=== PATIENT | male | born 1970 | race African-American/Black ===

== ENCOUNTER 2017-09-12 01:11 | Emergency (ER) | payer SELFPAY ==
[2017-09-12] MEDS ORDERED: Ibuprofen 800 MG TAB ONE (01:51)
--- NOTE | 2017-09-12 09:10 | RAD ---
LEFT WRIST 3 VIEWS: Date: 09/12/17 PROVIDED CLINICAL HISTORY: Fall. FINDINGS: There is no evidence for fracture or other acute osseous abnormality. If there is persistent clinical concern, conservative management and follow-up imaging are advised. IMPRESSION: As above. POS: [facility]
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
== END 2017-09-12 01:56 | disposition home or self-care (01) ==
LOC: SCSER 01:11
DX: S63.502A Unspecified sprain of left wrist, initial encounter (principal); S63.501A Unspecified sprain of right wrist, initial encounter; F17.210 Nicotine dependence, cigarettes, uncomplicated; V80.010A Animal-rider injured by fall from or being thrown from horse in noncollision accident, initial encounter

== ENCOUNTER 2019-05-25 10:03 | Emergency (ER) | payer SELFPAY ==
[2019-05-25] MEDS ORDERED: Adacel (T-DAP) 0.5 ML SYRINGE ONE (11:04)
[2019-05-25] MEDS ORDERED: Ibuprofen 800 MG TAB ONE (11:05)
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
== END 2019-05-25 11:52 | disposition home or self-care (01) ==
LOC: ERS 10:03
DX: S43.402A Unspecified sprain of left shoulder joint, initial encounter (principal); S60.419A Abrasion of unspecified finger, initial encounter; I10 Essential (primary) hypertension; V67.5XXA Driver of heavy transport vehicle injured in collision with fixed or stationary object in traffic accident, initial encounter
CPT/HCPCS: 90471; 90715; 93005

== ENCOUNTER 2019-11-28 08:47 | Emergency (ER) | payer SELFPAY ==
[2019-11-28 09:24] LABS: #Basophils 0.1 thou/uL (0.0-0.2); #Eosinphils 0.3 thou/uL (0.0-0.7); #Lymphocytes 2.6 thou/uL (1.20-3.40); #Monocytes 0.6 thou/uL (0.11-0.59); #Neutrophils 3.6 thou/uL (1.40-6.50); %Basophils 1.5 % (0.0-1.0); %Eosinophils 3.6 % (0.0-10.0); %Lymphocytes 36.6 % (21.0-51.0); %Monocytes 7.7 % (0.0-10.0); %Neutrophils 50.6 % (42.0-75.0); Hemoglobin 15.7 g/dL (14.0-18.0); Mean Corpuscular HGB CONC 31.9 g/dL (32.0-36.0); Mean Corpuscular Volume 94.1 fL (78.0-98.0); Mean Platelet Volume 8.6 fL (7.4-10.4); Platelet Count 227 thou/uL (130-400); RBC Distribution Width 12.1 % (11.5-14.5); Red Blood Cell (RBC) Count 5.22 mill/uL (4.70-6.10); White Blood Cell (WBC) Count 7.1 thou/uL (4.8-10.8)
[2019-11-28] MEDS ORDERED: Ketorolac Tromethamine 30 MG/ML VIAL ONE (09:47)
[2019-11-28] MEDS ORDERED: Ondansetron PF 4 MG/2 ML Vial ONE (09:47)
[2019-11-28 10:01] LABS: ALT (SGPT) 22 U/L (8-55); AST (SGOT) 22 U/L (5-34); Albumin 4.4 g/dL (3.5-5.0); Alkaline Phosphatase 110 U/L (40-110); Anion Gap 15 mmol/L (10-20); BUN (Urea Nitrogen) 15 mg/dL (8.9-20.6); Bilirubin, Total 0.3 mg/dL (0.2-1.2); Calc. Creatinine Clearance 0 mL/min (70-130); Calcium 9.2 mg/dL (7.8-10.44); Carbon Dioxide 23 mmol/L (22-29); Chloride 107 mmol/L (98-107); Estimated GFR-MDRD 80; Globulin 3.5 g/dL (2.4-3.5); Glucose 114 mg/dL (70-105); Potassium 4.5 mmol/L (3.5-5.1); Protein, Total 7.9 g/dL (6.0-8.3); Sodium 140 mmol/L (136-145)
[2019-11-28 10:11] LABS: Bilirubin Negative (Negative); Blood, Urine Negative (Negative); Clarity Clear (Clear); Glucose, Urine (Dipstick) Normal (Negative); Leukocyte Negative Leu/uL (Negative); Nitrite Negative (Negative); Protein, Urine (Dipstick) Negative (Neg-Trace); Urobilinogen Normal mg/dL (Less than 2)
--- NOTE | 2019-11-28 11:46 | CT ---
ABDOMEN AND PELVIC CT SCAN WITHOUT IV CONTRAST: HISTORY: Right flank pain. FINDINGS: The lung bases appear clear. There are several small indeterminate hypodensities within the liver up to 1 cm in size not adequately characterized on this study. Depending upon concern or if there are abnormal liver function tests, followup nonemergent CT with and without contrast with liver mass prot ocol might be considered. Gallbladder, common duct, pancreas, and spleen are unremarkable. Adrenal glands are unremarkable. No evidence for right renal calculi or obstruction. There are several n onobstructing left renal calculi, but no evidence for acute left-sided obstruction. Status post a ppendectomy changes. Lumbar degenerative disk disease with some stenosis at L4-L5 and L5-S1. IMPRESSION: Nonobstructing left renal calculi. No evidence for acute obstruction. Several indeterminate low- attenuation foci in the liver. POS: [facility]
== END 2019-11-28 10:37 | disposition home or self-care (01) ==
LOC: ERS 08:47
DX: N20.0 Calculus of kidney (principal); I10 Essential (primary) hypertension; F17.210 Nicotine dependence, cigarettes, uncomplicated
CPT/HCPCS: 74176; 80053; 81003; 85025; 96374; 96375; J1885; J2405